=== PATIENT | male | born 1945 | race Two or more races ===

== ENCOUNTER 2017-01-28 21:56 | Emergency (ER) | payer OTHER ==
[~2017-01-28] VITALS: Ht 198.1 cm; Wt 140.6 kg
[2017-01-28 22:43] LABS: Basophils # (auto) 0 uL; Basophils % (auto) 0.1 % (0.0-2.0); Eosinophils # (auto) 0 uL; Eosinophils % (auto) 0.3 % (0.0-7.0); Hematocrit 25.7 % (41.0-53.0); Hemoglobin 9.1 g/dL (13.5-17.5); Lymphocytes # (auto) 0.5 uL; Lymphocytes % (auto) 6.5 % (10.0-50.0); Mean Corpuscular Hemoglobin 33.1 pg (28.0-32.0); Mean Corpuscular Hgb Conc. 35.3 g/dL (32.0-36.0); Mean Corpuscular Volume 93.6 fL (80.0-100.0); Mean Platelet Volume 6.7 fL (7.4-10.4); Monocytes # (auto) 0.9 uL; Monocytes % (auto) 10.9 % (0.0-12.0); Neutrophils # (auto) 6.5 uL; Neutrophils % (auto) 82.2 % (37.0-80.0); Platelet Count (auto) 76 10^3/uL (140-450); Red Cell Distribution Width 12.9 % (11.6-16.0); White Blood Cell 7.9 10^3/uL (4.4-10.8)
[2017-01-28 23:02] LABS: Albumin 3.2 g/dL (3.4-5.0); Calcium 7.8 mg/dL (8.5-10.1); Magnesium 2.1 mg/dL (1.6-2.6); Potassium 3.9 mmol/L (3.5-5.1)
[2017-01-28 23:07] LABS: BUN/Creatinine Ratio 23.2; Bilirubin, Total 1.5 mg/dL (0.2-1.0); Total Protein 6.1 g/dL (6.4-8.2)
[2017-01-28 23:09] LABS: Partial Thromboplastin Time 31.7 sec (22.64-33.71)
[2017-01-28 23:14] LABS: INR 1.84 (0.9-1.15)
[2017-01-28 23:16] LABS: Platelet Estimate Decreased
[2017-01-28 23:17] LABS: Anisocytosis Slight; B-Type Natriuretic Peptide 498.92 pg/mL (0-100); Platelet Clumps OCCL.; Temperature: 22.1 C (20.0-25.0)
[2017-01-29] MEDS ORDERED: IOHEXOL 350 MG/ML 100ML IJ ONE (00:01)
[2017-01-29] MEDS ORDERED: PIPERACILLIN-TAZOB 3.375GM 100 ML IV ONE (02:45)
[2017-01-29] MEDS ORDERED: VANCOMYCIN 1GM/250ML D5W 250 ML IV ONE (02:45)
[2017-01-29] MEDS ORDERED: ONDANSETRON HCL 4 MG/2 ML VIAL ONE (05:21)
[2017-01-29] MEDS ORDERED: ONDANSETRON HCL 4 MG/2 ML VIAL IV ONE (05:45)
[2017-01-29 08:30] VITALS: BP 125/63
== END 2017-01-29 04:52 | disposition short-term general hospital (02) ==
LOC: ER 22:00
DX: L02.212 Cutaneous abscess of back [any part, except buttock and flank] (principal); E78.5 Hyperlipidemia, unspecified; I10 Essential (primary) hypertension; R51 Headache
CPT/HCPCS: 36415; 70450; 71010; 71260; 74177; 80053; 83735; 83880; 84484; 85025; 85610; 85730; 93005; 96365; 96366; 96368; 96375; 99285; J2405; J2543; J3370; Q9967